=== PATIENT | male | born 1970 | race Caucasian/White ===

== ENCOUNTER → 2019-12-24 | Outpatient (CLI) | payer BC ==
[~2019-12-24] MED LIST: REGADENOSON 0.4 MG/5 ML SYRINGE IV ONE
--- NOTE | 2019-12-24 11:01 | EST ---
EXERCISE STRESS AGE: 49 SEX: M HT: 68" WT: 200 lbs. PROTOCOL: Lexiscan STAGE: DURATION OF EXERCISE: HEART RATE REST: 62 BLOOD PRESSURE REST: 151/83 MAXIMUM HEART RATE ACHIEVED: 106 MAXIMUM BLOOD PRESSURE: 141/72 85% MPHR: 144 100% MPHR: 169 METS: INDICATIONS: Chest pain, hypertension. CLINICAL INFORMATION: DATE OF SERVICE: 12/24/2019 Baseline EKG revealed normal sinus rhythm without significant ST-T changes. With Lexiscan administration, heart rate changed from 62-98 beats per minute, blood pressure changed from 150/81 to 138/70, and came back to baseline. Patient had transient shortness of breath. EKG was unremarkable. Rare PVCs are noted. By EKG criteria, this is an unremarkable Lexiscan stress test. The nuclear scan results will be reported by the radiologist. EMILIA / JOSE ANGEL: [id number] /
--- NOTE | 2019-12-24 11:18 | NM ---
EXAMINATION TYPE: NM stress lexiscan cardiolite DATE OF EXAM: 12/24/2019 COMPARISON: NONE HISTORY: Precordial chest pain and abnormal EKG TECHNIQUE: After the intravenous administration of 10.2 mCi Tc 99m Sestamibi - Cardiolite resting SP ECT images acquired 45 minutes post injection. The patient received 0.4mg Lexiscan, 24.7 mCi Tc 99m Sestamibi - Stress images obtained [address] injection FINDINGS: Review of stress and rest SPECT images demonstrates decreased perfusion inferior wall which appears t o worsen following stress imaging. A degree of stress-induced ischemia is difficult to exclude. Gated analysis shows normal wall motion . IMPRESSION: No scintigraphic evidence for reversible ischemia.
== END | disposition home or self-care (01) ==
LOC: RADNMMAIN 06:55
PROVIDERS: ATTEND Family Medicine
DX: I10 Essential (primary) hypertension (principal)
CPT/HCPCS: 93017; 78452; A9500; J2785

== ENCOUNTER 2020-01-27 12:25 | Observation (INO) | payer BC ==
[2020-01-27] MEDS ORDERED: LIDOCAINE 1% INJ 10MG/ML (20 ML MDV) ONE (14:09)
[2020-01-27] MEDS ORDERED: ASPIRIN 325 MG TAB ONE (14:22)
[2020-01-27] MEDS ORDERED: ASPIRIN 325 MG TAB PO ONE (14:25)
[2020-01-27] MEDS ORDERED: MIDAZOLAM 2 MG/2 ML VIAL IV ONE ×2 (14:27→14:54)
[2020-01-27] MEDS ORDERED: BIVALIRUDIN BOLUS 250 MG/50 ML IV ONE (14:32)
[2020-01-27] MEDS ORDERED: PRASUGREL 10 MG TAB ONE (14:35)
[2020-01-27] MEDS ORDERED: PRASUGREL 10 MG TAB PO ONE (14:38)
[2020-01-27] MEDS ORDERED: BIVALIRUDIN 250 MG in SODIUM CHLORIDE 0.9% 50 ML IV ONE (14:38)
[2020-01-27] MEDS: NITROGLYCERIN 1000MCG/10ML SYRINGE INTRACORON ONE ×3 (14:39→14:58)
[2020-01-27] MEDS ORDERED: niCARdipine 25 MG/10 ML VIAL ONE (14:43)
[2020-01-27] MEDS ORDERED: IOPAMIDOL-370 125ML BTL INJ ONE (14:58)
[2020-01-27] MEDS ORDERED: IV FLUID CONTINUATION 500 ML IV ONE (14:59)
[2020-01-27] MEDS ORDERED: ATROPINE SULFATE 0.1 MG/ML 10ML SYRINGE IV PRN (15:09)
[2020-01-27] MEDS ORDERED: ZOLPIDEM 5 MG TAB PO PRN (15:09)
[2020-01-27] MEDS ORDERED: NITROGLYCERIN SL TABS 0.4 MG TAB SUBLINGUAL PRN (15:09)
[2020-01-27] MEDS ORDERED: RX INFO: IV CONTRAST WAS GIVEN 1 EACH MISC MISCELLANE PRN (15:09)
[2020-01-27] MEDS ORDERED: MAG HYDROX/AL HYDROX/SIMETH 30 ML CUP PO PRN (15:09)
[2020-01-27] MEDS ORDERED: SODIUM CHLORIDE 0.9% 1,000 ML IV SCH (15:15)
[2020-01-27 16:00] VITALS: RESP 16
--- NOTE | 2020-01-27 17:37 | PTCA ---
PERCUTANEOUSTRANS CORORONARY ANGIOGRAPHY DATE OF PROCEDURE: 01/27/2020 PERFORMING PHYSICIAN: Frank Scott M.D. PROCEDURES PERFORMED: 1. Successful stenting of the mid left anterior descending artery using a 2.5 x 18 mm Xience drug-eluting stent with an excellent angiographic result and reduction of stenosis from 80% to 0%. 2. Successful balloon angioplasty of the first diagonal branch of the left anterior descending artery with good angiographic results and reduction of stenosis from 90% to 20%. INDICATIONS: This is a 49-year-old gentleman with hypertension and dyslipidemia who was experiencing chest discomfort. He underwent a myocardial perfusion imaging stress test and that revealed reversible defect. Because of that, heart catheterization was advised. The patient underwent heart catheterization at [facility] and that revealed severe disease involving the mid LAD by the bifurcation of a large diagonal branch. Because of that, PCI was advised. APPROACH: Right common femoral artery. COMPLICATIONS: None. LEVEL OF SEDATION: Moderate, with sedation length of 28 minutes. PROCEDURE DESCRIPTION: After obtaining informed consent, the patient was brought to the cardiac laborer driver. The right groin sheath was exchanged over an 0.035 wire for a new sheath. At that point anticoagulation was initiated using Angiomax. Subsequently I did engage the left main using a JL3.5 guide. I did wire the LAD using a run-through wire. Subsequently balloon angioplasty of the mid LAD was performed using a 2.5 x 12 mm balloon which was inflated under 10 atmospheres for 20 seconds. After that I did stenting of the mid LAD using a 2.5 x 18 mm Xience JINA where the stent was positioned under fluoroscopic guidance and deployed under 18 atmospheres for 20 seconds. The following angiogram showed excellent angiographic results in the stented segment with significant pinch on the diagonal branch that appeared to be in the range of 90%. At that point I did wire the diagonal branch using an 0.014 Whisper wire. I did balloon angioplasty of the ostial of the diagonal using a 2.5 x 12 mm NC balloon which was inflated under 18 atmospheres for 20 seconds. Subsequently I did balloon the stented segment in the LAD across the diagonal using a 2.5 x 12 mm NC balloon which was inflated under 16 atmospheres for 20 seconds. The final angiogram showed good angiographic results with good flow in the LAD and diagonal with residual stenosis in the diagonal that appeared to be in the range of 20% to 30% and zero residual stenosis in the LAD. The procedure was completed without any complication. POST-PROCEDURE MANAGEMENT: 1. Dual anti-platelet therapy. 2. Risk factor modifications. 3. Follow up with the patient. EMILIA / SUJATAN: [id number] /
[2020-01-27] MEDS ORDERED: DIPHENOX-ATROP 2.5-0.025 MG 1 EACH TAB PO PRN (17:59)
[2020-01-27] MEDS: HYDROcodone/APAP 7.5-325MG 1 EACH TAB PO SCH ×2 (18:13→21:50)
[2020-01-27] MEDS ORDERED: ATORVASTATIN 80 MG TAB PO SCH (21:00)
[2020-01-27] MEDS: METOPROLOL TARTRATE 25 MG TAB PO SCH ×2 (21:50→22:07)
[2020-01-28] MEDS: METOPROLOL TARTRATE 25 MG TAB PO SCH (06:01)
[2020-01-28 07:06] LABS: Basophils % (A) 0 %; Eosinophils # (A) 0.1 k/uL (0-0.7); Eosinophils % (A) 1 %; HCT 47.4 % (39.0-53.0); HGB 16.1 gm/dL (13.0-17.5); Lymphocytes # (A) 2.5 k/uL (1.0-4.8); Lymphocytes % (A) 29 %; MCH 32.6 pg (25.0-35.0); MCHC 33.9 g/dL (31.0-37.0); MCV 96.2 fL (80.0-100.0); Mean Platelet Volume 8.8; Monocytes # (A) 0.5 k/uL (0-1.0); Monocytes % (A) 6 %; Neutrophils # (A) 5.3 k/uL (1.3-7.7); Neutrophils % (A) 62 %; Platelet Count 216 k/uL (150-450); RBC 4.93 m/uL (4.30-5.90); RDW 12.1 % (11.5-15.5); WBC 8.5 k/uL (3.8-10.6)
[2020-01-28 07:20] LABS: African American GFR (CKD) >90 (>60 ml/min/1.73 sqM); Anion Gap 8 mmol/L; Blood Urea Nitrogen 9 mg/dL (9-20); Calcium 9.1 mg/dL (8.4-10.2); Carbon Dioxide 24 mmol/L (22-30); Chloride 106 mmol/L (98-107); Glucose 92 mg/dL (74-99); Non-African American GFR(CKD) >90 (>60 ml/min/1.73 sqM); Potassium 4.4 mmol/L (3.5-5.1); Sodium 138 mmol/L (137-145)
[2020-01-28] MEDS ORDERED: PANTOPRAZOLE 40 MG TABLET PO SCH (07:30)
--- NOTE | 2020-01-28 07:36 | P.DS ---
Providers Date of admission: 01/27/20 13:56 01/27/2020 Attending physician: Frank Scott Consults: 01/27/20 15:09 Consult Physician Routine Consulting Provider: [facility] Consult Reason/Comments: Post Interventional patient Do you want consulting provider notified?: Already Contacted Primary care physician: Frank Scott [facility] Course: This is a 49-year-old gentleman with hypertension and dyslipidemia who was experiencing symptoms of chest discomfort and underwent myocardial perfusion imaging stress test came in to be abnormal. Subsequently he underwent a heart catheterization and that revealed severe disease involving the LAD. He underwent yesterday successful stenting of the LAD with balloon angioplasty of the diagonal. He was seen this morning. He is doing good from a cardiovascular standpoint of view. The patient is going to be discharged home on dual antiplatelet therapy along with high intensity statin and I will follow-up with the patient next week in the office Plan - Discharge Summary Discharge Rx Participant: No New Discharge Prescriptions: New Aspirin 325 mg PO DAILY #90 tab Prasugrel [Effient] 10 mg PO DAILY #90 tab Atorvastatin [Lipitor] 80 mg PO HS #90 tab Metoprolol Tartrate [Lopressor] 25 mg PO BID #180 tab Continue Lisinopril [Zestril] 20 mg PO DAILY amLODIPine [Norvasc] 10 mg PO DAILY HYDROcodone/APAP 7.5-325MG [[place] 7.5-325] 1 tab PO QID Diphenox-Atrop 2.5-0.025 mg [Lomotil] 2 tab PO QID PRN PRN Reason: Loose Stool Omeprazole 20 mg PO DAILY Discharge Medication List Diphenox-Atrop 2.5-0.025 mg [Lomotil] 2 tab PO QID PRN 01/27/20 [History] HYDROcodone/APAP 7.5-325MG [[place] 7.5-325] 1 tab PO QID 01/27/20 [History] Lisinopril [Zestril] 20 mg PO DAILY 01/27/20 [History] Omeprazole 20 mg PO DAILY 01/27/20 [History] amLODIPine [Norvasc] 10 mg PO DAILY 01/27/20 [History] Aspirin 325 mg PO DAILY #90 tab 01/28/20 [Rx] Atorvastatin [Lipitor] 80 mg PO HS #90 tab 01/28/20 [Rx] Metoprolol Tartrate [Lopressor] 25 mg PO BID #180 tab 01/28/20 [Rx] Prasugrel [Effient] 10 mg PO DAILY #90 tab 01/28/20 [Rx] Follow up Appointment(s)/Referral(s): Frank Scott MD [Primary Care Provider] - 1 Week
[2020-01-28] MEDS ORDERED: ASPIRIN 325 MG TAB PO SCH (09:00)
[2020-01-28] MEDS ORDERED: lisinopriL 20 MG TAB PO SCH (09:00)
[2020-01-28] MEDS ORDERED: amLODIPine 10 MG TAB PO SCH (09:00)
[2020-01-28] MEDS ORDERED: PRASUGREL 10 MG TAB PO SCH (09:00)
[2020-01-28] MEDS: HYDROcodone/APAP 7.5-325MG 1 EACH TAB PO SCH (09:22)
[2020-01-28 10:50] VITALS: BP 140/75; PULSE 65; TEMP 98.2
== END 2020-01-28 10:55 | disposition home or self-care (01) ==
LOC: INTOOBSV 13:56 → 3SCARD 13:56
PROVIDERS: ADMIT Internal Medicine Interventional Cardiology; ATTEND Internal Medicine Interventional Cardiology
DX: R07.89 Other chest pain (principal); I25.10 Atherosclerotic heart disease of native coronary artery without angina pectoris; I10 Essential (primary) hypertension; E78.5 Hyperlipidemia, unspecified; R94.31 Abnormal electrocardiogram [ECG] [EKG]; F17.210 Nicotine dependence, cigarettes, uncomplicated; Z88.0 Allergy status to penicillin; Z79.899 Other long term (current) drug therapy; Z79.82 Long term (current) use of aspirin; Z82.49 Family history of ischemic heart disease and other diseases of the circulatory system
CPT/HCPCS: 92921; 80048; 85025; G0379; G0378; C9600; C1769 ×3; C1887; C1725 ×3; C1894; C1874; J2250; J0583; Q9967

== ENCOUNTER 2020-04-23 10:21 | Day surgery (SDC) | payer BC ==
[2020-04-21 10:52] VITALS: BMI 28.8
[2020-04-23] MEDS ORDERED: ALPRAZolam 0.25 MG TAB PO PRN (11:08)
[2020-04-23] MEDS ORDERED: ALPRAZolam 0.5 MG TAB PO PRN (11:08)
[2020-04-23] MEDS ORDERED: ASPIRIN 325 MG TAB PO STA (11:08)
[2020-04-23] MEDS ORDERED: SODIUM CHLORIDE 0.9% 1,000 ML in EMPTY BAG 1 BAG IV ONE (11:08)
[2020-04-23] MEDS ORDERED: ATORVASTATIN 80 MG TAB PO STA (11:08)
[2020-04-23] MEDS ORDERED: SODIUM CHLORIDE 0.9% 1,000 ML IV ONE (11:30)
[2020-04-23] MEDS ORDERED: HEPARIN SODIUM 1,000 UN/ML (10ML VL) ONE (12:21)
[2020-04-23] MEDS ORDERED: LIDOCAINE 1% INJ 10MG/ML (20 ML MDV) ONE (12:21)
[2020-04-23] MEDS ORDERED: LIDOCAINE 1% INJ 10MG/ML (20 ML MDV) SQ ONE (12:37)
[2020-04-23] MEDS ORDERED: MIDAZOLAM 2 MG/2 ML VIAL IVP ONE (12:37)
[2020-04-23] MEDS ORDERED: IOPAMIDOL-370 125ML BTL INJ ONE (12:52)
[2020-04-23] MEDS ORDERED: RX INFO: IV CONTRAST WAS GIVEN 1 EACH MISC MISCELLANE PRN (12:54)
[2020-04-23] MEDS ORDERED: SODIUM CHLORIDE 0.9% 1,000 ML IV SCH (13:00)
[2020-04-23 19:52] VITALS: BP 114/69; PULSE 72; RESP 18; TEMP 98.1
--- NOTE | 2020-04-23 20:44 | CC ---
CARDIAC CATHETERIZATION REPORT DATE OF SERVICE: 04/23/2020 PERFORMING PHYSICIAN: Frank Scott M.D. PROCEDURE PERFORMED: 1. Selective right and left coronary angiogram. 2. Left heart catheterization. INDICATION: This is a very pleasant 50-year-old gentleman with coronary artery disease and prior stenting of the LAD which was performed recently. He continues to have intermittent episodes of atypical chest discomfort. Because of that, he was advised to undergo a heart catheterization for definitive diagnosis. APPROACH: Right common femoral artery. COMPLICATIONS: None. LEVEL OF SEDATION: Moderate, with sedation length of 14 minutes. PROCEDURE DESCRIPTION: After obtaining informed consent, the patient was brought to the cardiac laborer hide house. The right common femoral artery was cannulated using micropuncture technique. The micropuncture wire passed easily. Then I placed a 6-Albanian sheath at the right common femoral artery. Selective right and left coronary angiogram was performed using JR3.5 and JL3.5 catheters. Left heart catheterization was performed using the JR3.5, which crossed the aortic valve, then I did pullback across the valve. The procedure was completed without any complication. SELECTIVE CORONARY ANGIOGRAM: 1. The right coronary artery is a medium- to large-caliber vessel. It is a dominant vessel. The RCA is angiographically normal. It distally bifurcates into PDA and PLV branches. Both appeared to be angiographically normal. 2. The left main has mild disease only. The left main is a large-caliber vessel. It bifurcates into left circumflex and left anterior descending artery. 3. The left circumflex is a small- to medium-caliber vessel and nondominant vessel. The left circumflex is angiographically normal. 4. The LAD. The proximal LAD appeared to be normal. The mid LAD is stented by the bifurcation of the diagonal branch and the stent seems to be patent. The LAD distally appeared to be normal. The ostial diagonal appeared to have mild disease only. CONCLUSION: Patent stent in the mid left anterior descending artery. POST-PROCEDURE MANAGEMENT: 1. Medical treatment. 2. Consider oral nitrate. 3. Follow up with the patient. MMODL / IJN: [id number] /
== END 2020-04-23 20:30 | disposition home or self-care (01) ==
LOC: CATHCVL 10:21 → 3NCARDOBS 12:51 → CATHCVL 20:30
PROVIDERS: ATTEND Internal Medicine Interventional Cardiology
DX: I25.110 Atherosclerotic heart disease of native coronary artery with unstable angina pectoris (principal); I10 Essential (primary) hypertension; E78.5 Hyperlipidemia, unspecified; E78.00 Pure hypercholesterolemia, unspecified; Z95.5 Presence of coronary angioplasty implant and graft; Z72.0 Tobacco use; Z79.02 Long term (current) use of antithrombotics/antiplatelets; Z79.82 Long term (current) use of aspirin; Z79.899 Other long term (current) drug therapy; Z88.0 Allergy status to penicillin; Z88.8 Allergy status to other drugs, medicaments and biological substances; Z82.49 Family history of ischemic heart disease and other diseases of the circulatory system
CPT/HCPCS: 93458; C1769; C1894; J2250; J2001; Q9967

== ENCOUNTER 2024-06-06 09:59 | Day surgery (SDC) | payer BC ==
[2024-06-05 10:28] VITALS: BMI 30.5
[~2024-06-06 09:59] MED LIST changes: +ALPRAZolam 0.25 MG TAB PO PRN; -REGADENOSON 0.4 MG/5 ML SYRINGE IV ONE
[2024-06-06] MEDS: IV FLUID CONTINUATION 1,000 ML IV ONE (10:10)
[2024-06-06] MEDS: SODIUM CHLORIDE 0.9% 1,000 ML in EMPTY BAG 1 BAG IV SCH ×2 (10:25→14:40)
[2024-06-06 10:41] LABS: Basophils % (A) 0 %; Eosinophils # (A) 0.1 k/uL (0-0.7); Eosinophils % (A) 1 %; HCT 45.9 % (39.0-53.0); HGB 15.3 gm/dL (13.0-17.5); Lymphocytes # (A) 2.5 k/uL (1.0-4.8); Lymphocytes % (A) 25 %; MCH 31.7 pg (25.0-35.0); MCHC 33.3 g/dL (31.0-37.0); MCV 95.3 fL (80.0-100.0); Monocytes # (A) 0.5 k/uL (0-1.0); Monocytes % (A) 5 %; Neutrophils # (A) 6.7 k/uL (1.3-7.7); Neutrophils % (A) 68 %; Platelet Count 313 k/uL (150-450); RBC 4.82 m/uL (4.30-5.90); RDW 11.4 % (11.5-15.5); WBC 9.9 k/uL (3.8-10.6)
[2024-06-06 11:01] LABS: African American GFR (CKD) >90 (>60 ml/min/1.73 sqM); Anion Gap 8 mmol/L; Blood Urea Nitrogen 9 mg/dL (9-20); Calcium 9.4 mg/dL (8.4-10.2); Carbon Dioxide 26 mmol/L (22-30); Chloride 104 mmol/L (98-107); Glucose 106 mg/dL (74-99); Non-African American GFR(CKD) >90 (>60 ml/min/1.73 sqM); Potassium 4.3 mmol/L (3.5-5.1); Sodium 138 mmol/L (137-145)
[2024-06-06] MEDS: HEPARIN SODIUM,PORCINE (1 ML) 2,500 UNIT in SODIUM CHLORIDE 0.9% 250 ML IRRIGATION PRN (13:01)
[2024-06-06] MEDS: HEPARIN SODIUM,PORCINE 10,000 UNIT in SODIUM CHLORIDE 0.9% 1,000 ML IRRIGATION PRN (13:01)
[2024-06-06] MEDS: MIDAZOLAM 2 MG/2 ML VIAL IVP ONE ×2 (13:02→13:20)
[2024-06-06] MEDS: LIDOCAINE 1% INJ 10MG/ML (20 ML MDV) SQ ONE (13:07)
[2024-06-06] MEDS: VERAPAMIL SYRINGE (5 MG/10 ML) INTRAARTER ONE (13:08)
[2024-06-06] MEDS: HEPARIN SODIUM 1,000 UN/ML (10ML VL) IVP ONE (13:10)
[2024-06-06] MEDS: fentaNYL (PF) 50 MCG/1 ML VIAL IVP ONE (13:14)
[2024-06-06] MEDS: IOPAMIDOL-370 100ML BTL INJ ONE ×2 (13:57→14:33)
[2024-06-06] MEDS: TICAGRELOR 90 MG TAB PO ONE (14:13)
[2024-06-06] MEDS ORDERED: ZOLPIDEM 5 MG TAB PO PRN (14:24)
[2024-06-06] MEDS ORDERED: ATROPINE SULFATE 0.1 MG/ML 10ML SYRINGE IV PRN (14:24)
[2024-06-06] MEDS ORDERED: MAG HYDROX/AL HYDROX/SIMETH 30 ML CUP PO PRN (14:24)
[2024-06-06] MEDS ORDERED: NITROGLYCERIN SL TABS 0.4 MG TAB SUBLINGUAL PRN (14:24)
[2024-06-06] MEDS ORDERED: RX INFO: IV CONTRAST WAS GIVEN 1 EACH MISC MISCELLANE PRN (14:24)
[2024-06-06] MEDS: ASPIRIN 325 MG TAB PO ONE (15:03)
[2024-06-06] MEDS: ATORVASTATIN 80 MG TAB PO ONE (15:03)
[2024-06-06] MEDS: HYDROcodone/APAP 7.5-325MG 1 EACH TAB PO SCH (15:41)
[2024-06-06] MEDS: ALPRAZolam 0.5 MG TAB PO PRN (15:41)
[2024-06-06] MEDS: DIPHENOX-ATROP 2.5-0.025 MG 1 EACH TAB PO PRN (15:41)
[2024-06-06] MEDS ORDERED: ALBUTEROL NEBULIZED 2.5 MG/3 ML INHALATION PRN (15:46)
[2024-06-06] MEDS: HYDROmorphone 0.5 MG/0.5 ML SYRINGE IVP PRN (18:53)
--- NOTE | 2024-06-06 20:37 | P.PCN ---
Date of Procedure: 06/06/24 Operative Findings: Cardiac catheterization and percutaneous coronary intervention Performing physician Frank Scott MD Procedure performed 1. Selective right and left coronary angiogram and left heart catheterization 2. Successful PCI of the LAD using a 3.0 x 18 mm Xience JINA with an excellent angiographic results Adjunctive use of IVUS and IFR 3. Selective right common femoral artery angiogram 4. Ultrasound-guided access of the right radial artery Indication Symptomatic 54-year-old gentleman with known CAD and prior stenting of the LAD who was experiencing the chest discomfort with exertion concerning for angina Approach Right radial artery and right common femoral artery Complication None Level of sedation Moderate with sedation length of 72 minutes Procedure description After obtaining informed consent the patient was brought to the cardiac Animal Researcher. The right radial artery was cannulated using micropuncture technique under ultrasound guidance and a proximal right breast lesion and placed a 6 Somali 11 cm sheath in the right radial artery and give the patient 2 mg of verapamil i ntra-arterial and 5 thousand's of heparin intravenous. Attending engaging the right coronary artery was extremely difficult because of extremely tortuous right subclavian artery. I was able to exchange my 11 cm sheath into 70 cm sheath using a 3 5 wire and with that I was able to engage the right coronary artery and left coronary artery using JR4 and JL 3.5 catheter to do left heart catheterization as well. Attempting doing an IFR of the LAD was unsuccessful from right radial approach and at that point I decided to do an access to the right common femoral artery via the right common femoral artery was cannulated using micropuncture technique and a micropuncture wire passed easily placed a 6 Somali 11 cm sheath at the right common femoral artery. Anticoagulation continued using heparin with continuous ACT monitoring. After visit with our wire and equalizing between the lower wire and guiding catheter which was JL 3.5 guiding catheter I did engage the left main and subsequently I did wire the LAD using the Doppler wire. iFR of the LAD was performed and came to be flow- limiting at 0.78. Doing pullback and doing an IFR of the left main was performed and came in to be nonflow limiting. After that intravascular ultrasound IVUS was performed to ensure diameter of the LAD around 3 mm not very calcified. Predilatation was performed using 2.5 mm balloon before I deployed a 3.0 x 18 mm stent where the stent was positioned under fluoroscopic guidance and deployed under fluoroscopy guidance subsequently I did and postdilated using 3.5 mm noncompliant balloon with a final angiogram showing excellent angiographic results and the procedure was completed with no complication. Intravascular ultrasound was performed after the stenting and showed that the stent was well opposed and well-expanded. We did also on the way out IVUS of the left main and that came in to be nonflow limiting with a minimal luminal area of 12 mm and an area of stenosis of only 30%. By the end I did selective right common femoral artery angiogram Selective coronary angiogram The RCA is a large-caliber vessel and the dominant vessel with mild to moderate disease with no high-grade stenosis The left main is calcified with mild disease only The LAD is a large-caliber vessel and stented in the midportion with intermediate lesion in the proximal portion documented to be flow-limiting by Doppler wire and The LCx large-caliber vessel nondominant vessel with mild disease Hemodynamic the LVEDP was about 15 mmHg was no significant gradient across aortic valve Conclusion 1. Patent stent in the mid LAD. Severe disease involving the proximal LAD. I did perform successful PCI of the proximal LAD 2. Mild disease involving the left main coronary artery nonflow limiting by Doppler wire and IVUS as well 3. Normal left-sided filling pressure Postprocedure management Dual antiplatelet therapy using aspirin and Brilinta for at least 6 months Aggressive cholesterol control Follow-up with the patient
[2024-06-06] MEDS: TICAGRELOR 90 MG TAB PO SCH (20:42)
[2024-06-06] MEDS: LORazepam 1 MG TAB PO PRN (20:42)
[2024-06-06] MEDS: METOPROLOL TARTRATE 25 MG TAB PO SCH (20:42)
[2024-06-07 03:59] VITALS: RESP 16
[2024-06-07] MEDS: PANTOPRAZOLE 40 MG TABLET PO SCH (06:37)
[2024-06-07 06:55] LABS: African American GFR (CKD) >90 (>60 ml/min/1.73 sqM); Non-African American GFR(CKD) >90 (>60 ml/min/1.73 sqM)
--- NOTE | 2024-06-07 08:01 | P.DS ---
Providers Attending physician: Frank Scott Consults: 06/06/24 14:24 Consult Physician Routine Consulting Provider: [facility] Consult Reason/Comments: Post Interventional patient Do you want consulting provider notified?: Already Contacted Primary care physician: Richardson Roberson MD Hospital Course: The patient is a pleasant 54-year-old gentleman who underwent hysterectomy heart catheterization and stenting of the proximal left anterior descending artery with adjunctive use of IVUS and IFR He was seen and evaluated this morning. He is asymptomatic and hemodynamically stable. The right radial artery site is soft and nontender with no bruises with a good pulse. The right femoral artery site appears to be slightly bruised and he had small hematoma yesterday but no hematoma was noted today. Overall the patient will be discharged on dual antiplatelet therapy and statin and I will follow-up with the patient in a week in the office Plan - Discharge Summary Discharge Rx Participant: Yes New Discharge Prescriptions: New Ticagrelor [Brilinta] 90 mg PO BID #180 tab Continue lisinopriL [Zestril] 20 mg PO DAILY HYDROcodone/APAP 7.5-325MG [[place] 7.5-325] 1 tab PO QID Diphenox-Atrop 2.5-0.025 mg [Lomotil] 2 tab PO QID PRN PRN Reason: Loose Stool Omeprazole 20 mg PO DAILY Metoprolol Tartrate [Lopressor] 25 mg PO BID #180 tab Aspirin [Adult Low Dose Aspirin EC] 81 mg PO DAILY Rosuvastatin [Crestor] 20 mg PO HS Discharge Medication List Diphenox-Atrop 2.5-0.025 mg [Lomotil] 2 tab PO QID PRN 01/27/20 [History] HYDROcodone/APAP 7.5-325MG [[place] 7.5-325] 1 tab PO QID 01/27/20 [History] Omeprazole 20 mg PO DAILY 01/27/20 [History] lisinopriL [Zestril] 20 mg PO DAILY 01/27/20 [History] Metoprolol Tartrate [Lopressor] 25 mg PO BID #180 tab 01/28/20 [Rx] Aspirin [Adult Low Dose Aspirin EC] 81 mg PO DAILY 04/21/20 [History] Rosuvastatin [Crestor] 20 mg PO HS 04/21/20 [History] Ticagrelor [Brilinta] 90 mg PO BID #180 tab 06/07/24 [Rx] Follow up Appointment(s)/Referral(s): Frank Scott MD [STAFF PHYSICIAN] - 1 Week (THE OFFICE WILL CALL YOU WITH AN APPOINTMENT DATE AND TIME) Patient Instructions/Handouts: Moderate Sedation (DC), After Radial Heart Catheterization (GEN) Activity/Diet/Wound Care/Special Instructions: *NO LIFTING, PUSHING, OR PULLING ANYTHING OVER 5 POUNDS FOR 5 DAYS *NO DRIVING FOR 3 DAYS *YOU CAN REMOVE YOUR DRESSING TOMORROW BUT DO NOT SUBMERSE YOUR PUNCTURE SITE IN WATER FOR A FEW DAYS TO PREVENT INFECTION - SO NO TUB BATHS, POOLS, HOT TUBS, DISHES...ETC *ANY SIGNS OF BLEEDING (HARDNESS, SWELLING, OR EXCESSIVE BRUISING) HOLD DIRECT PRESSURE ON YOUR PUNCTURE SITE AND COME TO THE NEAREST EMERGENCY ROOM AND GET YOUR PUNCTURE SITE LOOKED AT - DO NOT DRIVE YOURSELF! EITHER CALL EMS OR HAVE SOMEONE DRIVE YOU!
[2024-06-07 08:07] VITALS: BP 132/78; PULSE 76; TEMP 98.1
[2024-06-07] MEDS: lisinopriL 20 MG TAB PO SCH (08:37)
[2024-06-07] MEDS: ASPIRIN 81 MG PO SCH (08:37)
[2024-06-07] MEDS ORDERED: ATORVASTATIN 40 MG TAB PO SCH (21:00)
== END 2024-06-07 10:18 | disposition home or self-care (01) ==
LOC: CATHCVL 09:59 → 3SCARD 14:20 → CATHCVL 06-07 10:18
PROVIDERS: ATTEND Internal Medicine Interventional Cardiology
DX: I25.10 Atherosclerotic heart disease of native coronary artery without angina pectoris (principal); I10 Essential (primary) hypertension; E78.5 Hyperlipidemia, unspecified; F17.200 Nicotine dependence, unspecified, uncomplicated; Z95.5 Presence of coronary angioplasty implant and graft; Z79.82 Long term (current) use of aspirin; Z79.899 Other long term (current) drug therapy; Z88.0 Allergy status to penicillin
CPT/HCPCS: 92978; 93458; 93799; 80048; 82565; 85025; C9600; C1894 ×3; C1769 ×4; C1887; C1725 ×2; C1753; C1874; J2250; J1644 ×3; J2003; J1171 ×2; Q9967; J3010